=== PATIENT | female | born 1985 | race Caucasian/White ===

== ENCOUNTER 2020-08-31 11:46 | Emergency (ER) | payer BC ==
[2020-08-31] MEDS ORDERED: Sodium Chloride 0.9% 10 ML Syringe FLUSH PRN (12:03)
[2020-08-31] MEDS ORDERED: Ondansetron 4 MG/2 ML SDV IVPUSH ONE (12:05)
[2020-08-31] MEDS ORDERED: Sodium Chloride 0.9% 1,000 ML IV ONE (12:05)
[2020-08-31 12:58] LABS: CHLORIDE,CL 98 mmol/L (98-107); SODIUM,NA 137 mmol/L (136-145)
[2020-08-31 12:59] LABS: ANION GAP 16.3 mmol/L (10-20)
[2020-08-31] MEDS ORDERED: Ketorolac 15 MG/ML SDV IVPUSH ONE (13:10)
[2020-08-31] MEDS ORDERED: Take Home: Ondansetron 4 MG Tab.DIS, 2 Tab Pack PO ONE (13:12)
--- NOTE | 2020-08-31 16:43 | EDM.PDOC ---
ED HPI GENERAL MEDICAL PROBLEM - General Chief Complaint: Gastrointestinal Problem Time Seen by Provider: 08/31/20 12:00 Source of Information: Reports: Patient History Limitations: Reports: No Limitations - History of Present Illness INITIAL COMMENTS - FREE TEXT/NARRATIVE: Pt. presents to ER with several day history of nausea, vomiting, diarrhea, and headache. She has not had any cough or chest congestion. 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 Pt. complains of diffuse abdominal cramping, but no pain. No bloody stools. Denies any chest pain or shortness of breath. Denies any ill contacts that she is aware of, but again, she works in healthcare. Onset Date: 08/29/20 Location: Reports: Abdomen, Generalized Associated Symptoms: Reports: Nausea/Vomiting Headache Pain Score (Numeric/FACES): 7 - Related Data Allergies Allergy/AdvReac Type Severity Reaction Status Date / Time No Known Allergies Allergy Verified 08/31/20 11:59 Home Meds: Home Meds . [No Known Home Meds] 08/31/20 [History] Past Medical History - Past Health History Medical/Surgical History: Denies Medical/Surgical History Social & Family History - Tobacco Use Tobacco Use Status *Q: Never Tobacco User ED ROS GENERAL - Review of Systems Review Of Systems: See Below Constitutional: Reports: No Symptoms HEENT: Reports: No Symptoms Respiratory: Reports: No Symptoms Cardiovascular: Reports: No Symptoms Endocrine: Reports: No Symptoms GI/Abdominal: Reports: Diarrhea, Nausea, Vomiting. Denies: Black Stool, Bloody Stool : Reports: No Symptoms Musculoskeletal: Reports: No Symptoms Skin: Reports: No Symptoms Neurological: Reports: No Symptoms Psychiatric: Reports: No Symptoms Hematologic/Lymphatic: Reports: No Symptoms Immunologic: Reports: No Symptoms ED EXAM, GENERAL - Physical Exam Exam: See Below Exam Limited By: No Limitations General Appearance: Alert, WD/WN, No Apparent Distress Respiratory/Chest: No Respiratory Distress, Lungs Clear, Normal Breath Sounds, No Accessory Muscle Use, Chest Non-Tender Cardiovascular: Normal Peripheral Pulses, Regular Rate, Rhythm, No Edema, No JVD, No Murmur Peripheral Pulses: 4+: Radial (L) GI/Abdominal: Soft, Non-Tender, No Distention, No Mass (Female) Exam: Deferred Rectal (Female) Exam: Deferred Back Exam: Normal Inspection Extremities: Normal Inspection, Normal Range of Motion, Non-Tender, No Pedal Edema, Normal Capillary Refill Neurological: Alert, Oriented, CN II-XII Intact, Normal Cognition, Normal Gait, Normal Reflexes, No Motor/Sensory Deficits Psychiatric: Normal Affect, Normal Mood Skin Exam: Warm, Dry, No Rash, Pallor Course - Vital Signs Last Recorded V/S: Last Vital Signs Temp 36.6 C 08/31/20 11:50 Pulse 113 H 08/31/20 11:50 Resp 18 08/31/20 11:50 BP 134/80 08/31/20 11:50 Pulse Ox 95 08/31/20 11:50 - Orders/Labs/Meds Orders: Active Orders 24 hr Category Date Time Status Peripheral IV Insertion Adult [OM.PC] Routine Oth 08/31/20 12:04 Ordered Labs: Laboratory Tests 08/31/20 08/31/20 08/31/20 Range/Units 12:08 12:37 12:37 WBC 9.0 (4.0-10.0) x10^3/uL RBC 4.66 (4.00-5.50) x10^6/uL Hgb 13.2 (12.0-16.0) g/dL Hct 40.1 (33.0-47.0) % MCV 86.1 (78.0-93.0) fL MCH 28.3 (26.0-32.0) pg MCHC 32.9 (32.0-36.0) g/dL RDW Coeff of Christopher 12.9 (10.0-15.0) % Plt Count 372 (130-400) x10^3/uL Neut % (Auto) 80.4 H (50.0-80.0) % Lymph % (Auto) 12.8 L (25.0-50.0) % [place] % (Auto) 5.5 (2.0-11.0) % Eos % (Auto) 1.1 (0.0-4.0) % Baso % (Auto) 0.2 (0.2-1.2) % Sodium 137 (136-145) mmol/L Potassium 3.3 L (3.5-5.1) mmol/L Chloride 98 (98-107) mmol/L Carbon Dioxide 26 (21-32) mmol/L Anion Gap 16.3 (10-20) mmol/L BUN 16 (7-18) mg/dL Creatinine 0.8 (0.55-1.02) mg/dL Est Cr Clr Drug Dosing TNP Estimated GFR (MDRD) > 60 Glucose 92 (74-106) mg/dL Calcium 9.3 (8.5-10.1) mg/dL Magnesium 2.0 (1.8-2.4) mg/dL SARS CoV-2 RNA Rapid JOJO Negative (NEGATIVE) Meds: Medications Discontinued Medications Generic Name Dose Route Start Last Admin Trade Name Freq PRN Reason Stop Dose Admin Sodium Chloride 1,000 mls @ 1,000 mls/hr 08/31/20 12:05 08/31/20 12:35 Normal Saline IV 08/31/20 13:04 1,000 mls/hr .BOLUS ONE Administration Ketorolac Tromethamine 15 mg 08/31/20 13:10 08/31/20 13:19 Toradol IVPUSH 08/31/20 13:11 15 mg ONETIME ONE Administration Ondansetron HCl 4 mg 08/31/20 12:05 08/31/20 12:35 Zofran IVPUSH 08/31/20 12:06 4 mg ONETIME ONE Administration Ondansetron HCl 2 packet 08/31/20 13:12 08/31/20 13:19 Take Home: Ondansetron Odt 4 Mg, 2 Tab Pack PO 08/31/20 13:13 2 packet ONETIME ONE Administration Sodium Chloride 10 ml 08/31/20 12:03 Saline Flush FLUSH ASDIRECTED PRN Keep Vein Open Departure - Departure Time of Disposition: 13:30 Disposition: Home, Self-Care 01 Clinical Impression: Gastroenteritis - Discharge Information Instructions: Viral Gastroenteritis, Adult, [id number] Referrals: PCP,None [Primary Care Provider] - Forms: ED Department Discharge Additional Instructions: Home to rest. Zofran ODT 4mg 1 every 6 hours as needed for nausea/vomiting Ibuprofen 200mg 3 tabs every 6 hours as needed for headache Drink plenty of fluids Recheck in clinic if not gradually getting better Sepsis Event Note (ED) - Evaluation Sepsis Screening Result: No Definite Risk - Focused Exam Vital Signs: Vital Signs Temp Pulse Resp BP Pulse Ox 08/31/20 11:50 36.6 C 113 H 18 134/80 95 - Problem List Review Problem List Initiated/Reviewed/Updated: Yes - My Orders Last 24 Hours: My Active Orders 08/31/20 12:04 Peripheral IV Insertion Adult [OM.PC] Routine - Assessment/Plan Last 24 Hours: My Active Orders 08/31/20 12:04 Peripheral IV Insertion Adult [OM.PC] Routine Plan: Home to rest. Zofran ODT 4mg 1 every 6 hours as needed for nausea/vomiting Ibuprofen 200mg 3 tabs every 6 hours as needed for headache Drink plenty of fluids Recheck in clinic if not gradually getting better
== END 2020-08-31 13:25 | disposition home or self-care (01) ==
LOC: VM.ED 11:46
DX: K52.9 Noninfective gastroenteritis and colitis, unspecified (principal); Z20.828 Contact with and (suspected) exposure to other viral communicable diseases
CPT/HCPCS: 80048; 83735; 85025; 87804; 87804-59; 96374; 96375; 99284; 99284-25; A9270-GY; J1885; J2405; J7030; U0002

== ENCOUNTER 2021-12-06 08:30 | Emergency (ER) | payer SELFPAY ==
[2021-12-06] MEDS ORDERED: diphenhydrAMINE 50 MG/ML SDV IVPUSH ONE (08:56)
[2021-12-06] MEDS ORDERED: Ondansetron 4 MG/2 ML SDV IV ONE (08:56)
[2021-12-06] MEDS ORDERED: Lactated Ringers 1,000 ML IV ONE (08:56)
[2021-12-06] MEDS ORDERED: Sodium Chloride 0.9% 10 ML Syringe FLUSH PRN (08:56)
[2021-12-06 09:20] LABS: CHLORIDE,CL 102 mmol/L (98-107); SODIUM,NA 136 mmol/L (136-145)
[2021-12-06 09:22] LABS: ANION GAP 13.6 mmol/L (5-15)
[2021-12-06] MEDS ORDERED: Take Home: Ondansetron 4 MG Tab.DIS, 5 Tab Pack PO ONE (10:33)
== END 2021-12-06 11:22 | disposition home or self-care (01) ==
LOC: VM.ED 08:30
DX: U07.1 COVID-19 (principal); K52.9 Noninfective gastroenteritis and colitis, unspecified
CPT/HCPCS: 36415; 80053; 81001; 81025; 83690; 85025; 96374; 96375; 99284; 99284-25; J1200; J2405; J7120; Q0162; U0002

== ENCOUNTER 2025-03-01 10:40 | Emergency (ER) | payer SELFPAY ==
[2025-03-01] MEDS ORDERED: Sodium Chloride 0.9% 10 ML Syringe FLUSH PRN (11:07)
[2025-03-01] MEDS: Ondansetron 4 MG/2 ML SDV IVPUSH ONE (11:18)
[2025-03-01] MEDS: HYDROmorphone 0.5 MG/0.5 ML Syringe IVPUSH ONE (11:19)
[2025-03-01] MEDS: Lactated Ringers 1,000 ML IV ONE (11:19)
[2025-03-01 11:20] LABS: BASOPHILS ABSOLUTE AUTO 0.1 x10^3/uL (0.0-0.2); BASOPHILS PERCENT AUTO 0.4 % (0.2-1.2); EOSINOPHILS ABSOLUTE AUTO 0.2 x10^3/uL (0.0-0.5); HEMATOCRIT 41.1 % (33.0-47.0); HEMOGLOBIN 13.6 g/dL (12.0-16.0); IMMATURE GRAN ABSOLUTE AUTO 0.05 x10^3/uL (0.00-0.07); LYMPHOCYTES ABSOLUTE AUTO 1.9 x10^3/uL (1.0-4.8); LYMPHOCYTES PERCENT AUTO 11.2 % (25.0-50.0); MEAN CORPUSCULAR HEMOGLOBIN 27.9 pg (26.0-32.0); MEAN CORPUSCULAR HGB CONC 33.1 g/dL (32.0-36.0); MEAN CORPUSCULAR VOLUME 84.2 fL (78.0-93.0); MONOCYTES ABSOLUTE AUTO 0.9 x10^3/uL (0.0-0.8); MONOCYTES PERCENT AUTO 5.4 % (2.0-11.0); NEUTROPHILS ABSOLUTE AUTO 13.7 x10^3/uL (1.8-7.7); NEUTROPHILS PERCENT AUTO 81.7 % (50.0-80.0); PLATELET COUNT,PLT 321 x10^3/uL (130-400); RED BLOOD CELL COUNT 4.88 x10^6/uL (4.00-5.50); WHITE BLOOD CELL COUNT,WBC 16.8 x10^3/uL (4.0-10.0)
[2025-03-01 11:39] LABS: PROTHROMBIN TIME 10.9 SEC (9.6-12.0); PTT,PARTIAL THROMBOPLSTIN TIME 22.2 SEC (23.5-33.2)
[2025-03-01 11:45] LABS: A/G RATIO 1.14; ALANINE AMINOTRANSFERASE,ALT 19 U/L (14-59); ALBUMIN 4.2 g/dL (3.4-5.0); ALKALINE PHOSPHATASE 57 U/L (46-116); AMYLASE 39 U/L (25-115); ANION GAP 17.5 mmol/L (5-15); ASPARTATE AMNIOTRANSFERASE,AST 23 U/L (15-37); BILIRUBIN TOTAL 1.7 mg/dL (0.2-1.0); BLOOD UREA NITROGEN,BUN 13 mg/dL (7-18); C-REACTIVE PROTEIN < 0.50 mg/dL (<=0.50); CALCIUM 9.2 mg/dL (8.5-10.1); CARBON DIOXIDE,CO2 24 mmol/L (21-32); CHLORIDE,CL 102 mmol/L (98-107); EST CRCL DRUG DOSING (CG) 77.37 mL/min; ESTIMATED GFR 73 mL/min (>=60); GLUCOSE RANDOM 159 mg/dL (70-99); MAGNESIUM 1.8 mg/dL (1.8-2.4); POTASSIUM,K 3.5 mmol/L (3.5-5.1); PROTEIN TOTAL,TP 7.9 g/dL (6.4-8.2); SODIUM,NA 140 mmol/L (136-145)
[2025-03-01 12:02] LABS: APPEARANCE,URINE CLOUDY (CLEAR); BILIRUBIN,URINE SMALL (NEGATIVE); COLOR,URINE RED (YELLOW); GLUCOSE,URINE NEGATIVE (NEGATIVE); KETONES,URINE >=160 mg/dL (NEGATIVE); LEUKOCYTE ESTERASE,URINE NEGATIVE (NEGATIVE); NITRITE,URINE NEGATIVE (NEGATIVE); OCCULT BLOOD,URINE LARGE (NEGATIVE); PROTEIN,URINE 100 mg/dL (NEGATIVE)
[2025-03-01 12:11] LABS: BACTERIA,URINE NOT SEEN /HPF (NOT SEEN); MUCUS,URINE NOT SEEN /LPF (NOT SEEN); RBC,URINE PACKED /HPF (NOT SEEN); SQUAMOUS EPITHELIAL CELLS,UR RARE /HPF (NOT SEEN); WBC,URINE NOT SEEN /HPF (NOT SEEN)
[2025-03-01] MEDS: Iopamidol 612 MG/ML 100 ML Bottle IVPUSH ONE (12:46)
[2025-03-01] MEDS: Ketorolac 15 MG/ML SDV IVPUSH ONE (14:10)
[2025-03-01] MEDS: Tamsulosin 0.4 MG Cap.ER PO ONE (14:11)
== END 2025-03-01 14:40 | disposition home or self-care (01) ==
LOC: VM.ED 10:40
DX: N13.2 Hydronephrosis with renal and ureteral calculous obstruction (principal); Z79.899 Other long term (current) drug therapy
CPT/HCPCS: 36415; 74177; 80053; 81001; 81025; 82150; 83605; 83690; 83735; 85025; 85610; 85730; 86140; 96361; 96374; 96375; 99283; 99284; A9270; J1885; J2405; J7120; Q9967